=== PATIENT | male | born 1970 | race Caucasian/White ===

== ENCOUNTER 2019-03-22 09:26 | Outpatient (RCR) | payer BC ==
[~2019-03-22] VITALS: Wt 81.4 kg
[2019-03-22 09:00] VITALS: BP 143/98; PULSE 104; TEMP 98.3
[2019-03-22] MEDS ORDERED: MYRBETR25MG PO (09:39)
[2019-03-22] MEDS ORDERED: MASON NATURAL1200 MG PO (09:40)
[2019-03-22] MEDS ORDERED: VITAMIN B11000 MCG/M IM (11:01)
== END 2019-03-22 16:10 | disposition home or self-care (01) ==
LOC: EUO 09:26
DX: A69.20 Lyme disease, unspecified (principal)
CPT/HCPCS: C1751; C1892

== ENCOUNTER → 2020-04-23 | Outpatient (CLI) | payer BC ==
[~2020-04-23] MED LIST: MASON NATURAL1200 MG PO; MYRBETR25MG PO; MYRBETR50MG PO; VITAMIN B11000 MCG/M IM
== END ==
LOC: COL.RAD 09:17
DX: R10.11 Right upper quadrant pain (principal); R79.89 Other specified abnormal findings of blood chemistry

== ENCOUNTER 2020-05-14 10:00 | Outpatient (RCR) | payer BC ==
[2020-05-10 13:49] VITALS: BP 144/88; PULSE 88; TEMP 98.1
[2020-05-10 13:58] LABS: BASO # 0.1 (0.0-0.2); BASO % 0.7 % (0.0-2.0); EOS % 0.3 % (0-4.0); GRAN # 4.8 (1.4-6.5); HEMATOCRIT 46.4 % (42.0-52.0); HEMOGLOBIN 16.3 g/dl (13.5-18.0); LYMPH # 1.8 (1.2-3.4); LYMPH % 24.9 % (20.0-51.0); MEAN CELL VOLUME 85 fl (80.0-100.0); MEAN CORPUSCULAR HEMOGLOBIN 30 pg (27.0-31.0); MEAN CORPUSCULAR HGB CONC 35 g/dl (33.0-37.0); MEAN PLATELET VOLUME 9.6 fl (7.4-10.4); MONO # 0.4 (0.1-0.6); MONO % 5.8 % (1.7-9.3); PLATELET COUNT 349 K/mm3 (130-400); RED BLOOD COUNT 5.46 M/mm3 (4.20-5.60); REDCELL DISTRIBUTION WIDTH-CV 12.4 % (11.5-14.5)
[2020-05-10 14:07] LABS: ALBUMIN 4.6 gm/dL (3.5-5.0); BILIRUBIN,TOTAL 1.9 mg/dL (0.0-1.0); CALCIUM 9.4 mg/dL (8.4-10.2); CREATININE, serum 0.85 (0.66-1.25); POTASSIUM 3.7 mmol/L (3.4-5.0); TOTAL PROTEIN 7.7 gm/dL (6.4-8.2)
[2020-05-10 14:38] LABS: THYROID STIMULATING HORMONE 1.39 uIU/mL (0.465-4.680)
--- NOTE | 2020-05-10 16:15 | NUR ---
IV DC'd per pt's request, catheter intact. He is assisted out by wheelchair to 's car.
[2020-05-11 12:00] VITALS: BP 138/85; PULSE 105; TEMP 98.5
[2020-05-11 13:00] LABS: COLLECTION METHOD CLEAN CATCH
[2020-05-11 13:10] LABS: MUCOUS Present /lpf; PH 6 (5-8); SQUAMOUS EPITHELIAL 0-2 /hpf; URINE APPEARANCE Hazy; URINE BACTERIA None Seen /hpf; URINE BILIRUBIN Negative (NEGATIVE); URINE BLOOD Negative (NEGATIVE); URINE COLOR Yellow; URINE GLUCOSE 1+ (NEGATIVE); URINE KETONE Trace (NEGATIVE); URINE LEUKOCYTE ESTERASE Negative (NEGATIVE); URINE NITRATE Negative (NEGATIVE); URINE PROTEIN(semi-quant) Negative (NEGATIVE); URINE RBC 0-2 /hpf; URINE UROBILINOGEN Negative (NEGATIVE); URINE WBC 0-2 /hpf
[2020-05-11 16:44] LABS: TB GOLD INTERPRETATION Negative (Negative)
[2020-05-12 09:41] VITALS: BP 122/81; PULSE 86; TEMP 97.8
[2020-05-13 09:30] VITALS: BP 134/85; PULSE 77; TEMP 98.4
[~2020-05-14] VITALS: Ht 177.8 cm; Wt 80.0 kg
[2020-05-14 11:32] VITALS: BP 134/82; PULSE 72; TEMP 98.2
== END 2020-05-14 12:30 ==
LOC: EUO 10:00
PROVIDERS: Family Medicine
DX: G35 Multiple sclerosis (principal)
CPT/HCPCS: J2930; J7050